=== PATIENT | male | born 1975 | race Caucasian/White ===

== ENCOUNTER → 2016-11-06 | Day surgery (SDC) | payer OTHER ==
[~2016-11-06] MED LIST: ACETAMINOPHEN 1000 MG/100 ML VIAL IV ONE; BUPIVACAINE/EPINEPHRINE 0.5% 50 ML VIAL ONE; KETOROLAC TROMETHAMINE 30 MG/ML (IVP) VIAL IV PUSH ONE; LACTATED RINGER'S 1,000 ML BAG IV ONE; LACTATED RINGER'S 1000 ML INJ 1,000 ML ONE; MEPERIDINE HCL 50 MG/ML VIAL ONE; MIDAZOLAM HCL 2 MG/2 ML VIAL ONE; ONDANSETRON HCL 4 MG/2 ML VIAL IV PUSH ONE; PROPOFOL 200 MG/20 ML AMP IV ONE; ceFAZolin INJ 1,000 MG VIAL ONE
--- NOTE | 2016-11-06 14:10 | TN ---
cc: ZEHRA VILLA M.D. DATE OF SURGERY: 11/06/2016 PREOPERATIVE DIAGNOSIS 1. Large right inguinal hernia. 2. Left inguinal hernia. POSTOPERATIVE DIAGNOSIS 1. Large right inguinal hernia. 2. Left inguinal hernia. PROCEDURE Laparoscopic bilateral inguinal hernia, right greater than left. ANESTHESIA General. SURGEON Dr. Villa INDICATION This is a pleasant 41-year-old gentleman who was found to have bilateral inguinal hernias. Plans were made for above. DETAILS OF PROCEDURE The patient was taken to the operating room and placed in supine position. After endotracheal anesthesia his abdomen is prepped with Betadine. He is given preoperative antibiotics. We make an incision just below the umbilicus, placed a dissecting balloon under videoscopic surveillance. We are able to dissect down to the preperitoneal space. Once this is done the dissecting balloon is removed and the balloon trocar is introduced. The preperitoneal space is insufflated to 15 mmHg. Two other working ports were placed in the midline. We then direct our attention to the left inguinal hernia. The cord structures are away from the hernia sac which is completely reduced. He has an indirect defect. We create a posterior window. We then cut a piece of polypropylene mesh 3 x 6 with a slit to accommodate the cord structures. This is then placed underneath the posterior window and folded over itself, secured to the pubic tubercle, Joshua's ligament and laterally to the anterior abdominal wall avoiding the epigastric vessels and avoiding the cutaneous nerves. The tails were fashion to themselves to the anterior abdominal wall. We then place a 1 x 3 cm slit in the mesh over the crotch to buttress the crotch of the mesh. We then direct our attention to the right side. This is a larger hernia. The hernia sac is somewhat stuck down in the hernia defect which is an indirect type. We are able to tease this away. Unfortunately there is a small rent made within the hernia sac. This is closed with a PDS Endoloop as we used two of them. The cord structures were identified. The vas deferens is very adherent to a portion of the hernia sac which is left attached to the vas deferens as it cannot be safely removed. Once this was done we are able to make a posterior window, place a similar piece of mesh that had been cut to size, 3 x 6, with a slit to accommodate the cord structures which were tacked to themselves using the tacking device, securing to the pubic tubercle and Joshua's ligament. A slit of mesh is then placed over the crotch of the mesh to further buttress this area. We then place 20 cc of Marcaine in the preperitoneal space. The balloon trocar is removed. CO2 is removed. The fascia at the umbilicus is closed with 0 Vicryl and the skin is closed with 4-0 Vicryl. Steri-Strips applied. Sterile bandage applied. The patient tolerated the procedure well and had no immediate post-op complications. Zehra Villa MD JDB/BT /1:41 PM /1:54 PM
== END | disposition home or self-care (01) ==
LOC: ESDC 08:07
PROVIDERS: ATTEND Surgery
DX: K40.20 Bilateral inguinal hernia, without obstruction or gangrene, not specified as recurrent (principal)
CPT/HCPCS: 00840; 49650; C1727; C1781; J0131; J0690; J1885; J2175; J2250; J2405; J3010; J7120